=== PATIENT | male | born 1985 | race Caucasian/White ===

== ENCOUNTER 2022-08-08 04:00 | Emergency (ER) | payer SELFPAY ==
[~2022-08-08] VITALS: Ht 185.4 cm; Wt 97.3 kg
--- NOTE | 2022-08-08 04:15 | NUR ---
pt to bed 06. room has been stripped.
[2022-08-08 04:19] VITALS: BP 144/85
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
--- NOTE | 2022-08-08 04:35 | NUR ---
CALLED [facility], REPORTED SITUATION. STATES THEY WILL HAVE SOMEONE OUT SHORTLY.
[2022-08-08] MEDS ORDERED: LIDOCAINE/EPI MPF 1%1:200000 30 ML VIAL INJ ONE (04:37)
[2022-08-08] MEDS: LIDOCAINE/EPI MPF 1%1:200000 30 ML VIAL INJ ONE (04:42)
--- NOTE | 2022-08-08 04:43 | NUR ---
[place] [employer] at bedside.
[2022-08-08 05:53] VITALS: BP 132/85
--- NOTE | 2022-08-08 05:53 | NUR ---
Patient discharged with v/s stable. Written and verbal after care instructions given and explained. Patient verbalized understanding. Ambulatory with steady gait. All questions addressed prior to discharge. Advised to follow up with PMD.
[2022-08-08 06:01] LABS: BARBITURATE, URINE NEGATIVE ng/ml (NEG <=200); BENZODIAZEPINE, URINE NEGATIVE ng/mL (NEG <=200); CANNABINOID, URINE NEGATIVE ng/mL (NEG <=50); COCAINE, URINE NEGATIVE ng/mL (NEG <=300); OPIATE, URINE NEGATIVE ng/mL (NEG <=2000); PHENCYCLIDINE SCREEN,URINE NEGATIVE ng/mL (NEG <=25)
== END 2022-08-08 05:53 | disposition home or self-care (01) ==
LOC: MED 04:00
DX: S21.111A Laceration without foreign body of right front wall of thorax without penetration into thoracic cavity, initial encounter (principal); S31.113A Laceration without foreign body of abdominal wall, right lower quadrant without penetration into peritoneal cavity, initial encounter; W26.0XXA Contact with knife, initial encounter; Y93.89 Activity, other specified; Y92.89 Other specified places as the place of occurrence of the external cause; Y99.8 Other external cause status
CPT/HCPCS: 12002; 80305; 90471; 90715; 93005; 99284; J2001